=== PATIENT | female | born 2005 | race Caucasian/White ===

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

== ENCOUNTER → 2023-02-25 | Outpatient (CLI) | payer OTHER ==
--- NOTE | 2023-03-06 10:13 | P.CEMON ---
7 DAY EVENT MONITOR REPORT: INDICATION: Chest pain. START DATE: 02/25/2023 END DATE: 03/03/2023 Patient wore the monitor for 4 days which is 57 % of total time. Maximum Heart Rate: 153 BPM Minimum Heart Rate: 60 BPM FINDINGS: Overall good quality study Patient's baseline rhythm was [normal sinus rhythm]. Baseline heart rate was 86 beats per minute. There were no observed atrial fibrillation, atrial flutter or sustained ventricular rhythm. There were no observed sinus pauses which were more than 2 second long. Patient had triggered events for chest pain and palpitations. On most occasions these were corresponding to sinus tachycardia with heart rates ranging from 120- 150 beats a minute. There were a few auto capture events respondent to sinus tachycardia. Please correlate clinically. Berny Smiley MD Cardiovascular Disease
== END | disposition home or self-care (01) ==
LOC: RADECHMAIN 07:23
PROVIDERS: ATTEND Family Medicine
DX: R07.9 Chest pain, unspecified (principal); R00.2 Palpitations; R00.0 Tachycardia, unspecified
CPT/HCPCS: 93225; 93226

== ENCOUNTER 2023-03-20 23:55 | Emergency (ER) | payer OTHER ==
[2023-03-21 00:03] VITALS: RESP 18
--- NOTE | 2023-03-21 00:56 | XR ---
EXAM: XR Left Wrist Complete, 3 or More Views CLINICAL HISTORY: ITS.REASON XR Reason: pain and swelling TECHNIQUE: Frontal, lateral and oblique views of the left wrist. COMPARISON: No relevant prior studies available. FINDINGS: Bones/joints: No acute fracture. No dislocation. Soft tissues: Unremarkable. No radiopaque foreign body. IMPRESSION: No acute osseous findings.
--- NOTE | 2023-03-21 01:28 | ED ---
Upper Extremity HPI - General Chief Complaint: Extremity Injury, Upper Stated Complaint: L Wrist Pain Time Seen by Provider: 03/21/23 00:42 Source: patient Mode of arrival: ambulatory Limitations: no limitations - History of Present Illness Initial Comments: 18-year-old female presenting with chief complaint of left wrist pain. She states that she injured it while pulling with her dog. She is having pain on the lateral portion and the anterior portion. No numbness or tingling. She has pain with range of motion. She has previously dislocated this wrist. - Related Data Home Medications Medication Instructions Recorded Confirmed Albuterol Inhaler [Ventolin Hfa 2 puff INHALATION RT-QID PRN 06/29/20 04/21/21 Inhaler] Ibuprofen 400 mg PO DIRECTED PRN 06/29/20 04/21/21 medroxyPROGESTERone [Depo-Provera] 150 mg IM Q90D 06/29/20 04/21/21 Bjvrfti-Ydod-Bsqt [id number] 1 each PO DIRECTED PRN 04/10/21 04/21/21 [Excedrin] Cetirizine HCl [Zyrtec] 10 mg PO DAILY 04/10/21 04/21/21 FLUoxetine HCL [PROzac] 10 mg PO DAILY PRN 04/10/21 04/21/21 Allergies Allergy/AdvReac Type Severity Reaction Status Date / Time No Known Allergies Allergy Verified 03/21/23 00:00 Review of Systems ROS Statement: Those systems with pertinent positive or pertinent negative responses have been documented in the HPI. ROS Other: All systems not noted in ROS Statement are negative. Past Medical History Past Medical History: Asthma Additional Past Medical History / Comment(s): hypoglycemia, exercise induced asthma., stress headaches, occ. heart flutter., hx of fx nose, left ankle, elbow, right wrist & left fibula., Slipped and injured left ankle November 2020. History of Any Multi-Drug Resistant Organisms: None Reported Past Surgical History: No Surgical Hx Reported Additional Past Surgical History / Comment(s): ganglion cyst Past Anesthesia/Blood Transfusion Reactions: No Reported Reaction, Motion Sickness Additional Past Anesthesia/Blood Transfusion Reaction / Comment(s): . Past Psychological History: Anxiety Smoking Status: Never smoker Past Alcohol Use History: None Reported Past Drug Use History: None Reported - Past Family History Mother Additional Family Medical History / Comment(s): possible minor stroke General Exam Limitations: no limitations General appearance: alert, in no apparent distress Head exam: Present: atraumatic, normocephalic, normal inspection Eye exam: Present: normal appearance, EOMI Neck exam: Present: normal inspection, full ROM Left Forearm Wrist exam: Present: normal inspection, tenderness, tenderness over anatomical snuff box. Absent: full ROM, swelling Neuro motor exam: Present: other (Neurovascularly intact) Neurological exam: Present: alert, oriented X3, CN II-XII intact Psychiatric exam: Present: normal affect, normal mood Skin exam: Present: warm, dry, intact, normal color. Absent: rash Course Vital Signs 03/21/23 00:00 Temperature 97.7 F Pulse Rate 95 Respiratory 18 Rate Blood Pressure 125/81 O2 Sat by Pulse 98 Oximetry Procedures - Orthopedic Splinting/Casting Injury #1 Side: left Upper Extremity Injury Location: wrist Upper Extremity Immobilizer: thumb spica Medical Decision Making - Medical Decision Making Was pt. sent in by a medical professional or institution (Dr. PA, WEB PRODUCTION DESIGNER, urgent care, hospital, or halfway...) When possible be specific @ -No Did you speak to anyone other than the patient for history (EMS, parent, family, police, friend...)? What history was obtained from this source @ -No Did you review nursing and triage notes (agree or disagree)? Why? @ -I reviewed and agree with nursing and triage notes Were old charts reviewed (outside hosp., previous admission, EMS record, old EKG, old radiological studies, urgent care reports/EKG's, halfway records)? Report findings @ -No old charts were reviewed Differential Diagnosis (chest pain, altered mental status, abdominal pain women, abdominal pain men, vaginal bleeding, weakness, fever, dyspnea, syncope, head ache, dizziness, GI bleed, back pain, seizure, CVA, palpatations, mental health, musculoskeletal)? @ -Differential Musculoskeletal Muscular strain, contusion, ligament sprain, fracture, arthritis, septic arthritis, bursitis, cellulitis, muscle spasm, nerve compression, DVT, arterial occlusion, herpes zoster, electrolyte abnormality, tumor.... This is not meant to be in all inclusive list EKG interpreted by me (3pts min.). @ -As above X-rays interpreted by me (1pt min.). @ -X-ray shows no acute osseous abnormality CT interpreted by me (1pt min.). @ -None done U/S interpreted by me (1pt. min.). @ -None done What testing was considered but not performed or refused? (CT, X-rays, U/S, labs)? Why? @ -None What meds were considered but not given or refused? Why? @ -None Did you discuss the management of the patient with other professionals (professionals i.e. , PA, WEB PRODUCTION DESIGNER, lab, RT, psych nurse, secondary social studies teacher, senior electronics technician, teacher, plain clothes police officer, nurse case management)? Give summary @ -No Was smoking cessation discussed for >3mins.? @ -No Was critical care preformed (if so, how long)? @ -No Were there social determinants of health that impacted care today? How? (Homelessness, low income, unemployed, alcoholism, drug addiction, transportation, low edu. Level, literacy, decrease access to med. care, [facility], rehab)? @ -No Was there de-escalation of care discussed even if they declined (Discuss DNR or withdrawal of care, Hospice)? DNR status @ -No What co-morbidities impacted this encounter? (DM, HTN, Smoking, COPD, CAD, Cancer, CVA, ARF, Chemo, Hep., AIDS, mental health diagnosis, sleep apnea, morbid obesity)? @ -None Was patient admitted / discharged? Hospital course, mention meds given and route, prescriptions, significant lab abnormalities, going to OR and other pertinent info. @ -18-year-old female presenting with chief complaint of left wrist injury. On physical examination she has snuffbox tenderness. X-ray is negative for osseous abnormality. Patient is placed in thumb spica splint and instructed to follow up with orthopedics.Follow-up with PCP. Report back to ER with any new or worsening symptoms. Discussed return parameters and answered all questions. Patient conveyed verbal understanding and agreed to the plan. I discussed this case in detail with my attending Dr. Pearce Undiagnosed new problem with uncertain prognosis? @ -No Drug Therapy requiring intensive monitoring for toxicity (Heparin, Nitro, Insulin, Cardizem)? @ -No Were any procedures done? @ -Thumb spica splint applied Diagnosis/symptom? @ -Snuffbox tenderness Acute, or Chronic, or Acute on Chronic? @ -Acute Uncomplicated (without systemic symptoms) or Complicated (systemic symptoms)? @ -Uncomplicated Side effects of treatment? @ -No Exacerbation, Progression, or Severe Exacerbation? @ -No Poses a threat to life or bodily function? How? (Chest pain, [place], [place], pneumonia, PE, COPD, DKA, ARF, appy, cholecystitis, CVA, Diverticulitis, Homicidal, Suicidal, threat to staff... and all critical care pts) @ -No Disposition Clinical Impression: Tenderness of anatomical snuffbox Disposition: HOME SELF-CARE Condition: Good Instructions (If sedation given, give patient instructions): Scaphoid Fracture (ED) Additional Instructions: Follow up with orthopedics. Report back to ER with any new or worsening symptoms. Take Motrin and Tylenol as needed for pain control. Rest ice and elevate. Is patient prescribed a controlled substance at d/c from ED?: No Referrals: Jacob Oliveira MD [Primary Care Provider] - 1-2 days Leighton Johnson DO [Doctor of Osteopathic Medicine] - 1-2 days Time of Disposition: 01:28
[2023-03-21 03:17] VITALS: BP 124/81; PULSE 78; TEMP 98.1
== END 2023-03-21 02:00 | disposition home or self-care (01) ==
LOC: EC 23:55
DX: S62.002A Unspecified fracture of navicular [scaphoid] bone of left wrist, initial encounter for closed fracture (principal); J45.909 Unspecified asthma, uncomplicated; F41.9 Anxiety disorder, unspecified; Z79.82 Long term (current) use of aspirin; Z79.899 Other long term (current) drug therapy; X50.9XXA Other and unspecified overexertion or strenuous movements or postures, initial encounter
CPT/HCPCS: 29125; 99283

== ENCOUNTER 2023-03-25 17:03 | Emergency (ER) | payer OTHER ==
[2023-03-25 17:17] VITALS: BP 134/84; PULSE 74; RESP 18; TEMP 98.3
[2023-03-25] MEDS ORDERED: ACET/COD 300 MG/30 MG STARTER PACK 6 TAB BTL PO STA (17:25)
[2023-03-25] MEDS ORDERED: Acetaminophen-Codeine 300-30mg TAB PO STA (17:25)
--- NOTE | 2023-03-25 17:25 | ED ---
Upper Extremity HPI - General Chief Complaint: Extremity Injury, Upper Stated Complaint: wrist pain left Time Seen by Provider: 03/25/23 17:18 Source: patient Mode of arrival: ambulatory Limitations: no limitations - History of Present Illness Initial Comments: 18-year-old female presenting with chief complaint of left wrist pain. She was here several days resting, she was placed in a thumb spica splint and instructed to follow up with orthopedics. She was provided with referral. She states that she saw her previous orthopedist today, who placed her in a Velcro thumb spica splint and said that there was nothing further to do. Patient states that she wants a second opinion she is still having pain. She was unable to follow up with the referral provided to her and her ER visit due to insurance issues. No numbness or tingling. Limited range of motion secondary to pain. - Related Data Home Medications Medication Instructions Recorded Confirmed Albuterol Inhaler [Ventolin Hfa 2 puff INHALATION RT-QID PRN 06/29/20 04/21/21 Inhaler] Ibuprofen 400 mg PO DIRECTED PRN 06/29/20 04/21/21 medroxyPROGESTERone [Depo-Provera] 150 mg IM Q90D 06/29/20 04/21/21 [id number] 1 each PO DIRECTED PRN 04/10/21 04/21/21 [Excedrin] Cetirizine HCl [Zyrtec] 10 mg PO DAILY 04/10/21 04/21/21 FLUoxetine HCL [PROzac] 10 mg PO DAILY PRN 04/10/21 04/21/21 Allergies Allergy/AdvReac Type Severity Reaction Status Date / Time No Known Allergies Allergy Verified 03/25/23 17:17 Review of Systems ROS Statement: Those systems with pertinent positive or pertinent negative responses have been documented in the HPI. ROS Other: All systems not noted in ROS Statement are negative. Past Medical History Past Medical History: Asthma Additional Past Medical History / Comment(s): hypoglycemia, exercise induced asthma., stress headaches, occ. heart flutter., hx of fx nose, left ankle, elbow, right wrist & left fibula., Slipped and injured left ankle November 2020. POTS History of Any Multi-Drug Resistant Organisms: None Reported Past Surgical History: No Surgical Hx Reported Additional Past Surgical History / Comment(s): ganglion cyst Past Anesthesia/Blood Transfusion Reactions: No Reported Reaction, Motion Sickness Additional Past Anesthesia/Blood Transfusion Reaction / Comment(s): . Past Psychological History: Anxiety Smoking Status: Never smoker Past Alcohol Use History: None Reported Past Drug Use History: None Reported - Past Family History Mother Additional Family Medical History / Comment(s): possible minor stroke General Exam Limitations: no limitations General appearance: alert, in no apparent distress Head exam: Present: atraumatic, normocephalic, normal inspection Eye exam: Present: normal appearance, EOMI Neck exam: Present: normal inspection, full ROM Left Forearm Wrist exam: Present: normal inspection, tenderness, tenderness over anatomical snuff box. Absent: full ROM, swelling, ecchymosis, deformity Neurological exam: Present: alert, oriented X3, CN II-XII intact Psychiatric exam: Present: normal affect, normal mood Skin exam: Present: warm, dry, intact, normal color. Absent: rash Course Vital Signs 03/25/23 17:14 Temperature 98.3 F Pulse Rate 74 Respiratory 18 Rate Blood Pressure 134/84 O2 Sat by Pulse 99 Oximetry Medical Decision Making - Medical Decision Making Was pt. sent in by a medical professional or institution (, PA, CHIEF ARCHITECT, urgent care, hospital, or correction...) When possible be specific @ -No Did you speak to anyone other than the patient for history (EMS, parent, family, police, friend...)? What history was obtained from this source @ -No Did you review nursing and triage notes (agree or disagree)? Why? @ -I reviewed and agree with nursing and triage notes Were old charts reviewed (outside hosp., previous admission, EMS record, old EKG, old radiological studies, urgent care reports/EKG's, correction records)? Report findings @ -Previous x-ray reviewed Differential Diagnosis (chest pain, altered mental status, abdominal pain women, abdominal pain men, vaginal bleeding, weakness, fever, dyspnea, syncope, headache, dizziness, GI bleed, back pain, seizure, CVA, palpatations, mental health, musculoskeletal)? @ -Differential Musculoskeletal Muscular strain, contusion, ligament sprain, fracture, arthritis, septic arthritis, bursitis, cellulitis, muscle spasm, nerve compression, DVT, arterial occlusion, herpes zoster, electrolyte abnormality, tumor.... This is not meant to be in all inclusive list EKG interpreted by me (3pts min.). @ -As above X-rays interpreted by me (1pt min.). @ -None done CT interpreted by me (1pt min.). @ -None done U/S interpreted by me (1pt. min.). @ -None done What testing was considered but not performed or refused? (CT, X-rays, U/S, labs)? Why? @ -None What meds were considered but not given or refused? Why? @ -None Did you discuss the management of the patient with other professionals (professionals i.e. Dr., PA, CHIEF ARCHITECT, lab, RT, psych nurse, social media editor, support services coordinator, teacher, strike warfare/missile systems officer, pillowcase cutter)? Give summary @ -No Was smoking cessation discussed for >3mins.? @ -No Was critical care preformed (if so, how long)? @ -No Were there social determinants of health that impacted care today? How? (Homelessness, low income, unemployed, alcoholism, drug addiction, transportation, low edu. Level, literacy, decrease access to med. care, shelter, rehab)? @ -No Was there de-escalation of care discussed even if they declined (Discuss DNR or withdrawal of care, Hospice)? DNR status @ -No What co-morbidities impacted this encounter? (DM, HTN, Smoking, COPD, CAD, Cancer, CVA, ARF, Chemo, Hep., AIDS, mental health diagnosis, sleep apnea, morbid obesity)? @ -None Was patient admitted / discharged? Hospital course, mention meds given and route, prescriptions, significant lab abnormalities, going to OR and other pertinent info. @ -18-year-old female presents with chief complaint of left wrist pain. She was seen here several days ago for an injury placed in thumb spica splint. Seen at her previous orthopedist office today who placed her in a Velcro thumb spica splint and stated that no further workup is needed. Patient is requesting a second opinion. She states the pain goes throughout the entire hand into the wrist. No new injury. She is provided with a short course of Tylenol 3 and referral for local orthopedist. Follow-up with PCP. Report back to ER with any new or worsening symptoms. Discussed return parameters and answered all questions. Patient conveyed verbal understanding and agreed to the plan. I discussed this case in detail with my attending Dr. Ca Undiagnosed new problem with uncertain prognosis? @ -No Drug Therapy requiring intensive monitoring for toxicity (Heparin, Nitro, Insulin, Cardizem)? @ -No Were any procedures done? @ -No Diagnosis/symptom? @ -Wrist pain Acute, or Chronic, or Acute on Chronic? @ -Acute Uncomplicated (without systemic symptoms) or Complicated (systemic symptoms)? @ -Uncomplicated Side effects of treatment? @ -No Exacerbation, Progression, or Severe Exacerbation? @ -No Poses a threat to life or bodily function? How? (Chest pain, [place], [place], pneumonia, PE, COPD, DKA, ARF, appy, cholecystitis, CVA, Diverticulitis, Homicidal, Suicidal, threat to staff... and all critical care pts) @ -No Disposition Clinical Impression: Wrist sprain Disposition: HOME SELF-CARE Condition: Good Instructions (If sedation given, give patient instructions): Wrist Injury (ED) Additional Instructions: Follow up with orthopedics. Report back to ER if any new or worsening symptoms. Take Motrin and Tylenol for pain control. Is patient prescribed a controlled substance at d/c from ED?: No Referrals: Jacob Oliveira MD [Primary Care Provider] - 1-2 days Luigi Wilson MD [STAFF PHYSICIAN] - 1-2 days Chidi Black MD [Medical Doctor] - 1-2 days Time of Disposition: 17:25
== END 2023-03-25 17:41 | disposition home or self-care (01) ==
LOC: EC 17:03
DX: S63.502A Unspecified sprain of left wrist, initial encounter (principal); J45.909 Unspecified asthma, uncomplicated; F41.9 Anxiety disorder, unspecified; Z79.82 Long term (current) use of aspirin; Z79.899 Other long term (current) drug therapy; X58.XXXA Exposure to other specified factors, initial encounter
CPT/HCPCS: 99284

== ENCOUNTER 2023-08-04 17:41 | Emergency (ER) | payer OTHER ==
--- NOTE | 2023-08-04 18:51 | XR ---
EXAMINATION TYPE: XR cervical spine comp DATE OF EXAM: 08/04/2023 6:23 PM CLINICAL INDICATION:Female, 18 years old with history of pain; [facility] COMPARISON: None TECHNIQUE: The cervical spine was imaged in frontal, lateral, odontoid and bilateral oblique projecti ons. FINDINGS: The osseous structures show no evidence of an acute fracture. No traumatic malalignment. There is mil d reversal of the normal cervical lordosis. No significant vertebral body osteophytes or facet joint arthropathy. The intervertebral disk spaces are preserved. Pedicles are intact. Bilateral osseous ne ural foramina appear patent. Soft tissues are within normal limits. The odontoid appears intact. If clinical concern persists, CT may be obtained for further evaluation. IMPRESSION: 1. No plain film evidence of acute fracture or traumatic malalignment. 2. Mild reversal of the normal cervical lordosis, can be seen with pain, positioning, muscular spasm .
[2023-08-04] MEDS ORDERED: ACET/COD 300 MG/30 MG STARTER PACK 6 TAB BTL PO STA (19:00)
--- NOTE | 2023-08-04 19:00 | ED ---
Neck Injury/Pain HPI - General Chief Complaint: Neck Pain/Injury Stated Complaint: Neck pain Time Seen by Provider: 08/04/23 17:52 Source: patient, RN notes reviewed Mode of arrival: ambulatory Limitations: no limitations - History of Present Illness Initial Comments: 18-year-old female presents emergency Department chief complaint of neck pain. Patient states that she's been having issues is worse in the last few weeks. She states this started after having right shoulder dislocation. Patient states that it cracked over the last day and states that she's had pain associated. She denies any focal weakness no headache. Patient denies any fevers or chills she states pain is better at rest worse with any movement. She is currently on Flexeril and ibuprofen. - Related Data Home Medications Medication Instructions Recorded Confirmed Albuterol Inhaler [Ventolin Hfa 2 puff INHALATION RT-QID PRN 06/29/20 04/21/21 Inhaler] Ibuprofen 400 mg PO DIRECTED PRN 06/29/20 04/21/21 medroxyPROGESTERone [Depo-Provera] 150 mg IM Q90D 06/29/20 04/21/21 [id number] 1 each PO DIRECTED PRN 04/10/21 04/21/21 [Excedrin] Cetirizine HCl [Zyrtec] 10 mg PO DAILY 04/10/21 04/21/21 FLUoxetine HCL [PROzac] 10 mg PO DAILY PRN 04/10/21 04/21/21 Allergies Allergy/AdvReac Type Severity Reaction Status Date / Time No Known Allergies Allergy Verified 08/04/23 17:47 Review of Systems ROS Statement: Those systems with pertinent positive or pertinent negative responses have been documented in the HPI. ROS Other: All systems not noted in ROS Statement are negative. Past Medical History Past Medical History: Asthma Additional Past Medical History / Comment(s): hypoglycemia, exercise induced asthma., stress headaches, occ. heart flutter., hx of fx nose, left ankle, elbow, right wrist & left fibula., Slipped and injured left ankle November 2020. POTS History of Any Multi-Drug Resistant Organisms: None Reported Past Surgical History: No Surgical Hx Reported Additional Past Surgical History / Comment(s): ganglion cyst Past Anesthesia/Blood Transfusion Reactions: No Reported Reaction, Motion Sickness Additional Past Anesthesia/Blood Transfusion Reaction / Comment(s): . Past Psychological History: Anxiety Smoking Status: Never smoker Past Alcohol Use History: None Reported Past Drug Use History: None Reported - Past Family History Mother Additional Family Medical History / Comment(s): possible minor stroke General Exam Limitations: no limitations General appearance: alert, in no apparent distress Head exam: Present: atraumatic, normocephalic, normal inspection Eye exam: Present: normal appearance, PERRL, EOMI. Absent: scleral icterus, conjunctival injection, periorbital swelling ENT exam: Present: normal exam, mucous membranes moist Neck exam: Present: normal inspection, tenderness (Paraspinal), full ROM (Pain with range of motion). Absent: meningismus, lymphadenopathy Respiratory exam: Present: normal lung sounds bilaterally. Absent: respiratory distress, wheezes, rales, rhonchi, stridor Cardiovascular Exam: Present: regular rate, normal rhythm, normal heart sounds. Absent: systolic murmur, diastolic murmur, rubs, gallop, clicks Extremities exam: Present: other (Upper extremity strength equal bilaterally neurovascular intact) Neurological exam: Present: alert, oriented X3, CN II-XII intact, reflexes normal. Absent: motor sensory deficit Course Vital Signs 08/04/23 17:44 Temperature 98.3 F Pulse Rate 113 H Respiratory 20 Rate Blood Pressure 135/91 O2 Sat by Pulse 99 Oximetry Medical Decision Making - Medical Decision Making Was pt. sent in by a medical professional or institution (, PA, BORDER PATROL OFFICER, urgent care, hospital, or detention...) When possible be specific @ -No Did you speak to anyone other than the patient for history (EMS, parent, family, police, friend...)? What history was obtained from this source @ -No Did you review nursing and triage notes (agree or disagree)? Why? @ -I reviewed and agree with nursing and triage notes Were old charts reviewed (outside hosp., previous admission, EMS record, old EKG, old radiological studies, urgent care reports/EKG's, detention records)? Report findings @ -No old charts were reviewed Differential Diagnosis (chest pain, altered mental status, abdominal pain women, abdominal pain men, vaginal bleeding, weakness, fever, dyspnea, syncope, headache, dizziness, GI bleed, back pain, seizure, CVA, palpatations, mental health, musculoskeletal)? @ -Trapezial muscle spasm, cervical strain, cervical pain spasmodic torticollis, EKG interpreted by me (3pts min.). @ -None X-ray interpreted by me (1pt min.). @ X-ray cervical spine shows loss of normal curvature, no other malalignment or fracture CT interpreted by me (1pt min.). @ -None done U/S interpreted by me (1pt. min.). @ -None done What testing was considered but not performed or refused? (CT, X-rays, U/S, labs)? Why? @ -None What meds were considered but not given or refused? Why? @ -None Did you discuss the management of the patient with other professionals (professionals i.e. , PA, BORDER PATROL OFFICER, lab, RT, psych nurse, licensed master social worker, fashion illustrator, teacher, commanding officer motorized squad, wrapper caser)? Give summary @ -No Was smoking cessation discussed for >3mins.? @ -No Was critical care preformed (if so, how long)? @ -No Were there social determinants of health that impacted care today? How? (Homelessness, low income, unemployed, alcoholism, drug addiction, transportation, low edu. Level, literacy, decrease access to med. care, intermediate, rehab)? @ -No Was there de-escalation of care discussed even if they declined (Discuss DNR or withdrawal of care, Hospice)? DNR status @ -No What co-morbidities impacted this encounter? (DM, HTN, Smoking, COPD, CAD, Cancer, CVA, ARF, Chemo, Hep., AIDS, mental health diagnosis, sleep apnea, morbid obesity)? @ -None Was patient admitted / discharged? Hospital course, mention meds given and route, prescriptions, significant lab abnormalities, going to OR and other pertinent info. @ -discharge patient has muscle spasms, muscular pain patient has no meningismus patient is afebrile patient is discharged in stable condition she did receive Valium in emergency department. Undiagnosed new problem with uncertain prognosis? @ [N] Drug Therapy requiring intensive monitoring for toxicity (Heparin, Nitro, Insulin, Cardizem)? @ [N] Were any procedures done? @ [N] Diagnosis/symptom? @ -Cervical strain, muscle spasms] Acute, or Chronic, or Acute on Chronic? @ Acute] Uncomplicated (without systemic symptoms) or Complicated (systemic symptoms)? @ Uncomplicated] Side effects of treatment? @ [N] Exacerbation, Progression, or Severe Exacerbation? @ [N] Poses a threat to life or bodily function? How? (Chest pain, [place], [place], pneumonia, PE, COPD, DKA, ARF, appy, cholecystitis, CVA, Diverticulitis, Homicidal, Suicidal, threat to staff... and all critical care pts) @ [N] Disposition Clinical Impression: Strain of neck muscle, Acute torticollis Disposition: HOME SELF-CARE Condition: Stable Instructions (If sedation given, give patient instructions): Cervical Strain (ED), Muscle Spasm (ED) Additional Instructions: Please return to the Emergency Department if symptoms worsen or any other concerns. Is patient prescribed a controlled substance at d/c from ED?: No Referrals: Jacob Oliveira MD [Primary Care Provider] - 1-2 days Time of Disposition: 19:00
[2023-08-04 19:50] VITALS: BP 113/80; PULSE 91; RESP 16; TEMP 98.7
== END 2023-08-04 20:00 | disposition home or self-care (01) ==
LOC: EC 17:41
DX: S16.1XXA Strain of muscle, fascia and tendon at neck level, initial encounter (principal); M43.6 Torticollis; J45.909 Unspecified asthma, uncomplicated; F41.9 Anxiety disorder, unspecified; Z79.82 Long term (current) use of aspirin; Z79.899 Other long term (current) drug therapy; X58.XXXA Exposure to other specified factors, initial encounter
CPT/HCPCS: 72050; 99283; 96372; J3360

== ENCOUNTER 2023-11-18 01:14 | Emergency (ER) | payer OTHER ==
[2023-11-18 01:46] LABS: Basophils # (A) 0.1 k/uL (0-0.2); Basophils % (A) 0 %; Eosinophils # (A) 0.1 k/uL (0-0.7); Eosinophils % (A) 1 %; HGB 13.6 gm/dL (11.4-16.0); Lymphocytes # (A) 2.5 k/uL (1.0-4.8); Lymphocytes % (A) 16 %; MCH 32.1 pg (25.0-35.0); MCHC 35.9 g/dL (31.0-37.0); MCV 89.5 fL (80.0-100.0); Mean Platelet Volume 7.8; Monocytes # (A) 0.8 k/uL (0-1.0); Monocytes % (A) 5 %; Neutrophils # (A) 12.3 k/uL (1.3-7.7); Neutrophils % (A) 77 %; Platelet Count 336 k/uL (150-450); RBC 4.25 m/uL (3.80-5.40); RDW 13.2 % (11.5-15.5); WBC 16.1 k/uL (4.0-11.0)
[2023-11-18 01:57] LABS: ALT 22 U/L (4-34); AST 25 U/L (14-36); African American GFR (CKD) >90 (>60 ml/min/1.73 sqM); Albumin 3.9 g/dL (3.5-5.0); Alkaline Phosphatase 80 U/L (38-126); Anion Gap 10 mmol/L; Blood Urea Nitrogen 13 mg/dL (7-17); Calcium 8.9 mg/dL (8.4-10.2); Carbon Dioxide 17 mmol/L (22-30); Chloride 112 mmol/L (98-107); Glucose 91 mg/dL (74-99); Non-African American GFR(CKD) >90 (>60 ml/min/1.73 sqM); Potassium 4.3 mmol/L (3.5-5.1); Sodium 139 mmol/L (137-145); Total Bilirubin 0.5 mg/dL (0.2-1.3); Total Protein 7.2 g/dL (6.3-8.2)
[2023-11-18 01:59] VITALS: TEMP 97.8
--- NOTE | 2023-11-18 01:59 | XR ---
EXAM: XR Chest, 2 Views CLINICAL HISTORY: ITS.REASON XR Reason: syncope TECHNIQUE: Frontal and lateral views of the chest. COMPARISON: No relevant prior studies available. FINDINGS: Lungs: No consolidation or mass. Pleural space: No effusion. Heart: No cardiomegaly. Bones/joints: No acute findings. IMPRESSION: No acute cardiopulmonary process.
[2023-11-18 02:06] LABS: Partial Thromboplastin Time 24.9 sec (22.0-30.0); Prothrombin Time 10.8 sec (10.0-12.5)
--- NOTE | 2023-11-18 02:06 | CT ---
EXAM: CT Head Without Intravenous Contrast CLINICAL HISTORY: ITS.REASON CT Reason: fall, head injury TECHNIQUE: Axial computed tomography images of the head/brain without intravenous contrast. CTDI is 45.2 mGy and DLP is 1032 mGy-cm. This CT exam was performed using one or more of the following dose reduction techniques: automated exposure control, adjustment of the mA and/or kV according to patient size, and/or use of iterative reconstruction technique. COMPARISON: No relevant prior studies available. FINDINGS: Brain: No hemorrhage or mass effect. Ventricles: No hydrocephalus. Bones/joints: Unremarkable. Soft tissues: Unremarkable. Sinuses: No air fluid level. Mastoid air cells: Clear. IMPRESSION: No acute hemorrhage, hydrocephalus, or mass effect. EXAM: CT Cervical Spine Without Intravenous Contrast CLINICAL HISTORY: ITS.REASON CT Reason: fall, head injury TECHNIQUE: Axial computed tomography images of the cervical spine without intravenous contrast. CTDI is 13.7 mGy and DLP is 378.5 mGy-cm. This CT exam was performed using one or more of the following dose reduction techniques: automated exposure control, adjustment of the mA and/or kV according to patient size, and/or use of iterative reconstruction technique. COMPARISON: No relevant prior studies available. FINDINGS: Vertebrae: No acute fracture. Discs/spinal canal/neural foramina: No significant degenerative changes. Soft tissues: No prevertebral swelling. IMPRESSION: No acute findings in the cervical spine.
--- NOTE | 2023-11-18 03:02 | ED ---
General Adult HPI - General Chief complaint: Syncope Stated complaint: Syncope Time Seen by Provider: 11/18/23 01:15 Source: patient Mode of arrival: ambulatory Limitations: no limitations - History of Present Illness Initial comments: 18-year-old female with past medical history of POTS who presents emergency department for possible syncope. EMS was called when the patient was found unresponsive in bed. She states that she was on the phone talking to her boyfriend. The next thing she knew she was lying on the floor next to her bed. She does not remember anything from the event. EMS did place the patient in a c-collar and brought her into the hospital. There is no report of any seizure- like activity. Unknown how long the patient was on the ground. She states that she has had previous episodes of similar and is currently under the care of Dr. Cristina. She states that he did diagnose her with POTS. She denies having any chest pain prior to the incident. She does have some mild right-sided neck pain. No obvious signs of injury. No nausea or vomiting. No reported confusion from the patient. No other alleviating, precipitating modifying factors - Related Data Home Medications Medication Instructions Recorded Confirmed Albuterol Inhaler [Ventolin Hfa 2 puff INHALATION RT-QID PRN 06/29/20 04/21/21 Inhaler] Ibuprofen 400 mg PO DIRECTED PRN 06/29/20 04/21/21 medroxyPROGESTERone [Depo-Provera] 150 mg IM Q90D 06/29/20 04/21/21 [id number] 1 each PO DIRECTED PRN 04/10/21 04/21/21 [Excedrin] Cetirizine HCl [Zyrtec] 10 mg PO DAILY 04/10/21 04/21/21 FLUoxetine HCL [PROzac] 10 mg PO DAILY PRN 04/10/21 04/21/21 Allergies Allergy/AdvReac Type Severity Reaction Status Date / Time No Known Allergies Allergy Verified 11/18/23 01:23 Review of Systems ROS Statement: Those systems with pertinent positive or pertinent negative responses have been documented in the HPI. ROS Other: All systems not noted in ROS Statement are negative. Past Medical History Past Medical History: Asthma Additional Past Medical History / Comment(s): hypoglycemia, exercise induced asthma., stress headaches, occ. heart flutter., hx of fx nose, left ankle, elbow, right wrist & left fibula., Slipped and injured left ankle November 2020. POTS History of Any Multi-Drug Resistant Organisms: None Reported Past Surgical History: No Surgical Hx Reported Additional Past Surgical History / Comment(s): ganglion cyst Past Anesthesia/Blood Transfusion Reactions: No Reported Reaction, Motion Sickness Additional Past Anesthesia/Blood Transfusion Reaction / Comment(s): . Past Psychological History: Anxiety Smoking Status: Never smoker Past Alcohol Use History: None Reported Past Drug Use History: None Reported - Past Family History Mother Additional Family Medical History / Comment(s): possible minor stroke General Exam Limitations: no limitations General appearance: alert, in no apparent distress Head exam: Present: atraumatic, normocephalic, normal inspection Eye exam: Present: normal appearance, PERRL, EOMI. Absent: scleral icterus, conjunctival injection, periorbital swelling ENT exam: Present: normal exam, mucous membranes moist Neck exam: Present: tenderness (Right-sided. No midline pain to palpation). Absent: meningismus, lymphadenopathy Respiratory exam: Present: normal lung sounds bilaterally. Absent: respiratory distress, wheezes, rales, rhonchi, stridor Cardiovascular Exam: Present: regular rate, normal rhythm, normal heart sounds. Absent: systolic murmur, diastolic murmur, rubs, gallop, clicks GI/Abdominal exam: Present: soft, normal bowel sounds. Absent: distended, tenderness, guarding, rebound, rigid Extremities exam: Present: normal inspection, full ROM, normal capillary refill. Absent: tenderness, pedal edema, joint swelling, calf tenderness Back exam: Present: normal inspection Neurological exam: Present: alert, oriented X3, CN II-XII intact Psychiatric exam: Present: normal affect, normal mood Skin exam: Present: warm, dry, intact, normal color. Absent: rash Course Vital Signs 11/18/23 11/18/23 11/18/23 01:15 02:23 03:30 Temperature 97.8 F Pulse Rate 69 90 80 Respiratory 18 15 24 Rate Blood Pressure 123/85 132/82 112/88 O2 Sat by Pulse 99 97 96 Oximetry 11/18/23 05:00 Temperature Pulse Rate 76 Respiratory 18 Rate Blood Pressure 102/66 O2 Sat by Pulse 97 Oximetry Medical Decision Making - Medical Decision Making Was pt. sent in by a medical professional or institution ([facility], [employer], urgent care, hospital, or halfway...) When possible be specific @ -No Did you speak to anyone other than the patient for history (EMS, parent, family, police, friend...)? What history was obtained from this source @ -Spoke with EMS Did you review nursing and triage notes (agree or disagree)? Why? @ -I reviewed and agree with nursing and triage notes Were old charts reviewed (outside hosp., previous admission, EMS record, old EKG, old radiological studies, urgent care reports/EKG's, halfway records)? Report findings @ -No old charts were reviewed Differential Diagnosis (chest pain, altered mental status, abdominal pain women, abdominal pain men, vaginal bleeding, weakness, fever, dyspnea, syncope, headache, dizziness, GI bleed, back pain, seizure, CVA, palpatations, mental health, musculoskeletal)? @ -Differential Syncope: Valvular disease, hypertrophic cardiomyopathy, pulmonary embolism, tamponade, tachycardia, bradycardia, OH, hypovolemia, hemorrhage, dissection, anemia, intracranial hemorrhage, seizure, hypoglycemia, carbon monoxide poisoning, this is not meant to be an all-inclusive list. EKG interpreted by me (3pts min.). @ -Yes and demonstrates sinus rhythm with a rate of 80. VT interval 128. QRS 97. QTc of 414. No acute ST segment elevation X-rays interpreted by me (1pt min.). @ -Yes and demonstrates no acute process CT interpreted by me (1pt min.). @ -Yes and demonstrates no cervical fractures U/S interpreted by me (1pt. min.). @ -None done What testing was considered but not performed or refused? (CT, X-rays, U/S, labs)? Why? @ -None What meds were considered but not given or refused? Why? @ -None Did you discuss the management of the patient with other professionals (professionals i.e. [facility], [employer], lab, RT, psych nurse, social director, engine buildup mechanic, teacher, contact officer, classification case manager)? Give summary @ -No Was smoking cessation discussed for >3mins.? @ -No Was critical care preformed (if so, how long)? @ -No Were there social determinants of health that impacted care today? How? (Homelessness, low income, unemployed, alcoholism, drug addiction, transportation, low edu. Level, literacy, decrease access to med. care, correction, rehab)? @ -No Was there de-escalation of care discussed even if they declined (Discuss DNR or withdrawal of care, Hospice)? DNR status @ -No What co-morbidities impacted this encounter? (DM, HTN, Smoking, COPD, CAD, Cancer, CVA, ARF, Chemo, Hep., AIDS, mental health diagnosis, sleep apnea, morbid obesity)? @ -POTS Was patient admitted / discharged? Hospital course, mention meds given and route, prescriptions, significant lab abnormalities, going to OR and other pertinent info. @ -Upon arrival patient was placed into room 1. Thorough history and physical exam was performed. Patient placed on continuous pulse ox and cardiac monitoring. Twelve-lead EKG is obtained. Laboratory studies are conducted. Patient does go for CT. No acute cervical fractures. C-collar was removed. Patient has no midline pain. Chest x-ray was performed. Results are discussed with patient. She remains on the cardiac cath lab radiology technologist without ectopy. At this time the patient will be discharged home. She is instructed to not drive while she is getting evaluated for her condition. She is to follow-up with Dr. Butler. Consider EEG for possible seizure-like activity and return for any new or worsening symptoms. Patient agreeable to plan was discharged in stable condition Undiagnosed new problem with uncertain prognosis? @ -Yes Drug Therapy requiring intensive monitoring for toxicity (Heparin, Nitro, Insulin, Cardizem)? @ -No Were any procedures done? @ -No Diagnosis/symptom? @ -Acute syncope, acute fall, right-sided neck pain, possible diagnosis of POTS syndrome Acute, or Chronic, or Acute on Chronic? @ -Acute, acute, acute, chronic Uncomplicated (without systemic symptoms) or Complicated (systemic symptoms)? @ -Complicated Side effects of treatment? @ -No Exacerbation, Progression, or Severe Exacerbation? @ -No Poses a threat to life or bodily function? How? (Chest pain, USA, [place], pneumonia, PE, COPD, DKA, ARF, appy, cholecystitis, CVA, Diverticulitis, Homicidal, Suicidal, threat to staff... and all critical care pts) @ -No - Lab Data Result diagrams: 11/18/23 01:33 11/18/23 01:33 Lab Results 11/18/23 11/18/23 11/18/23 Range/Units 01:33 01:33 01:33 WBC 16.1 H (4.0-11.0) k/uL RBC 4.25 (3.80-5.40) m/uL Hgb 13.6 (11.4-16.0) gm/dL Hct 38.0 (34.0-46.0) % MCV 89.5 (80.0-100.0) fL MCH 32.1 (25.0-35.0) pg MCHC 35.9 (31.0-37.0) g/dL RDW 13.2 (11.5-15.5) % Plt Count 336 (150-450) k/uL MPV 7.8 Neutrophils % 77 % Lymphocytes % 16 % Monocytes % 5 % Eosinophils % 1 % Basophils % 0 % Neutrophils # 12.3 H (1.3-7.7) k/uL Lymphocytes # 2.5 (1.0-4.8) k/uL Monocytes # 0.8 (0-1.0) k/uL Eosinophils # 0.1 (0-0.7) k/uL Basophils # 0.1 (0-0.2) k/uL PT 10.8 (10.0-12.5) sec INR 1.0 (<1.2) APTT 24.9 (22.0-30.0) sec Sodium 139 (137-145) mmol/L Potassium 4.3 (3.5-5.1) mmol/L Chloride 112 H (98-107) mmol/L Carbon Dioxide 17 L (22-30) mmol/L Anion Gap 10 mmol/L BUN 13 (7-17) mg/dL Creatinine 0.62 (0.52-1.04) mg/dL Est GFR (CKD-EPI)AfAm >90 (>60 ml/min/1.73 sqM) Est GFR (CKD-EPI)NonAf >90 (>60 ml/min/1.73 sqM) Glucose 91 (74-99) mg/dL Calcium 8.9 (8.4-10.2) mg/dL Total Bilirubin 0.5 (0.2-1.3) mg/dL AST 25 (14-36) U/L ALT 22 (4-34) U/L Alkaline Phosphatase 80 (38-126) U/L Troponin I (0.000-0.034) ng/mL Total Protein 7.2 (6.3-8.2) g/dL Albumin 3.9 (3.5-5.0) g/dL Urine HCG, Qual (Not Detectd) 11/18/23 11/18/23 Range/Units 01:33 03:40 WBC (4.0-11.0) k/uL RBC (3.80-5.40) m/uL Hgb (11.4-16.0) gm/dL Hct (34.0-46.0) % MCV (80.0-100.0) fL MCH (25.0-35.0) pg MCHC (31.0-37.0) g/dL RDW (11.5-15.5) % Plt Count (150-450) k/uL MPV Neutrophils % % Lymphocytes % % Monocytes % % Eosinophils % % Basophils % % Neutrophils # (1.3-7.7) k/uL Lymphocytes # (1.0-4.8) k/uL Monocytes # (0-1.0) k/uL Eosinophils # (0-0.7) k/uL Basophils # (0-0.2) k/uL PT (10.0-12.5) sec INR (<1.2) APTT (22.0-30.0) sec Sodium (137-145) mmol/L Potassium (3.5-5.1) mmol/L Chloride (98-107) mmol/L Carbon Dioxide (22-30) mmol/L Anion Gap mmol/L BUN (7-17) mg/dL Creatinine (0.52-1.04) mg/dL Est GFR (CKD-EPI)AfAm (>60 ml/min/1.73 sqM) Est GFR (CKD-EPI)NonAf (>60 ml/min/1.73 sqM) Glucose (74-99) mg/dL Calcium (8.4-10.2) mg/dL Total Bilirubin (0.2-1.3) mg/dL AST (14-36) U/L ALT (4-34) U/L Alkaline Phosphatase (38-126) U/L Troponin I <0.012 (0.000-0.034) ng/mL Total Protein (6.3-8.2) g/dL Albumin (3.5-5.0) g/dL Urine HCG, Qual Not Detected (Not Detectd) Disposition Clinical Impression: Syncope, Blunt head injury, Neck pain Disposition: HOME SELF-CARE Condition: Stable Instructions (If sedation given, give patient instructions): Syncope (ED) Additional Instructions: Please follow-up with your barking machine feeder in regards to your symptoms. Consider getting an EEG. Return to the emergency department for any new or worsening symptoms Is patient prescribed a controlled substance at d/c from ED?: No Referrals: Jacob Oliveira MD [Primary Care Provider] - 1-2 days Time of Disposition: 04:14
[2023-11-18 05:40] VITALS: BP 102/66; PULSE 76; RESP 18
== END 2023-11-18 05:00 | disposition home or self-care (01) ==
LOC: EC 01:14
DX: S09.90XA Unspecified injury of head, initial encounter (principal); M54.2 Cervicalgia; X58.XXXA Exposure to other specified factors, initial encounter
CPT/HCPCS: 36415; 70450; 71046; 72125; 80053; 81025; 84484; 85025; 85610; 85730; 93005; 99285

== ENCOUNTER → 2024-06-01 | Outpatient (CLI) | payer OTHER ==
--- NOTE | 2024-06-04 20:31 | MR ---
EXAMINATION TYPE: MRI left ankle without IV contrast DATE OF EXAM: 06/01/2024 COMPARISON: Left ankle radiographs HISTORY: Left ankle pain, history of surgery. Standard multiplanar, multisequence MRI departmental protocol Multiplanar, multisequence images of the left ankle were acquired without contrast. FINDINGS: Achilles tendon is intact. Flexor tendons are intact. Extensor tendons are intact. Peroneal tendons are intact. Syndesmotic ligaments are intact. Anterior talofibular, posterior talofibular and calcaneofibular ligaments are intact. Deep and superficial deltoid ligaments are intact. Plantar fascia is intact. Sinus tarsi fat is preserved. Negative for fracture, contusion or marrow replacement. Talar dome is intact. Postsurgical change of the distal fibula. Alignment is maintained. No joint effusion. Mild medial and lateral soft tissue swelling without a drainable fluid collection. Musculature is pre served. IMPRESSION: 1. Intact tendons and ligaments. Negative for fracture. 2. Mild medial and lateral soft tissue swelling. 3. Postsurgical change of the distal fibula. [facility], Workstation: [id number], 06/04/2024 8:28 PM
== END | disposition home or self-care (01) ==
LOC: RADMRIMAIN 17:07
PROVIDERS: ATTEND Podiatrist
DX: S86.312D Strain of muscle(s) and tendon(s) of peroneal muscle group at lower leg level, left leg, subsequent encounter (principal); M66.362 Spontaneous rupture of flexor tendons, left lower leg; Z48.89 Encounter for other specified surgical aftercare; M79.89 Other specified soft tissue disorders

== ENCOUNTER 2024-07-23 20:47 | Emergency (ER) | payer OTHER ==
[2024-07-23 20:51] VITALS: RESP 18
--- NOTE | 2024-07-23 21:28 | ED ---
Lower Extremity Injury HPI - General Chief Complaint: Extremity Injury, Lower Stated Complaint: Left ankle injury Time Seen by Provider: 07/23/24 21:03 Source: patient, RN notes reviewed Mode of arrival: ambulatory Limitations: no limitations - History of Present Illness Initial Comments: This is a 19-year-old female presenting with left ankle injury/pain (03/28). Patient states she was attempting to step when she occurred which turned out to be snow, causing her foot to fall further than expected and supinate about 30 minutes ago. Patient notes significant pain with movement, palpation and weightbearing, stating she is unable to ambulate due to the pain. 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 MD Complaint: ankle injury, foot injury Onset/Timin -: minutes(s) Injury: Ankle: Left, Foot: Left Type of Injury: inversion Place: street/outdoors Improves With: immobilization Worsens With: weight bearing, movement, palpation Context: walking Associated Symptoms: swelling, numbness, unable to bear weight - Related Data Home Medications Medication Instructions Recorded Confirmed Albuterol Inhaler [Ventolin Hfa 2 puff INHALATION RT-QID PRN 06/29/20 04/21/21 Inhaler] Ibuprofen 400 mg PO DIRECTED PRN 06/29/20 04/21/21 medroxyPROGESTERone [Depo-Provera] 150 mg IM Q90D 06/29/20 04/21/21 [id number] 1 each PO DIRECTED PRN 04/10/21 04/21/21 [Excedrin] Cetirizine HCl [Zyrtec] 10 mg PO DAILY 04/10/21 04/21/21 FLUoxetine HCL [PROzac] 10 mg PO DAILY PRN 04/10/21 04/21/21 Previous Rx's Medication Instructions Recorded Ibuprofen [Motrin] 800 mg PO Q8H PRN #30 tab 07/23/24 Allergies Allergy/AdvReac Type Severity Reaction Status Date / Time No Known Allergies Allergy Verified 07/23/24 20:51 Review of Systems ROS Statement: Those systems with pertinent positive or pertinent negative responses have been documented in the HPI. ROS Other: All systems not noted in ROS Statement are negative. Past Medical History Past Medical History: Asthma, Seizure Disorder Additional Past Medical History / Comment(s): hypoglycemia, exercise induced asthma., stress headaches, occ. heart flutter., hx of fx nose, left ankle, elbow, right wrist & left fibula., Slipped and injured left ankle November 2020. POTS History of Any Multi-Drug Resistant Organisms: None Reported Past Surgical History: No Surgical Hx Reported Additional Past Surgical History / Comment(s): ganglion cyst Past Anesthesia/Blood Transfusion Reactions: No Reported Reaction, Motion Sickness Additional Past Anesthesia/Blood Transfusion Reaction / Comment(s): . Past Psychological History: Anxiety Smoking Status: Never smoker Past Alcohol Use History: None Reported Past Drug Use History: None Reported - Past Family History Mother Additional Family Medical History / Comment(s): possible minor stroke General Exam Limitations: no limitations General appearance: alert, in no apparent distress Head exam: Present: atraumatic, normocephalic, normal inspection Eye exam: Present: normal appearance, PERRL, EOMI. Absent: scleral icterus, conjunctival injection, periorbital swelling ENT exam: Present: normal exam, mucous membranes moist Neck exam: Present: normal inspection. Absent: tenderness, meningismus, lymphadenopathy Respiratory exam: Present: normal lung sounds bilaterally. Absent: respiratory distress, wheezes, rales, rhonchi, stridor Cardiovascular Exam: Present: regular rate, normal rhythm, normal heart sounds. Absent: systolic murmur, diastolic murmur, rubs, gallop, clicks GI/Abdominal exam: Present: soft, normal bowel sounds. Absent: distended, tenderness, guarding, rebound, rigid Extremities exam: Present: tenderness (Positive exquisite, diffuse left foot/ankle edema/tenderness, including bilateral malleolus, navicular and fifth metatarsal. Negative erythema, ecchymosis, crepitus, deformity. Patient notes minor lateral foot paresthesia dorsalis pedis pulse +2, capillary refill less than 2 seconds), normal capillary refill, pedal edema, joint swelling. Absent: calf tenderness Back exam: Present: normal inspection Neurological exam: Present: alert, oriented X3, CN II-XII intact Psychiatric exam: Present: normal affect, normal mood Skin exam: Present: warm, dry, intact, normal color. Absent: rash Course Vital Signs 07/23/24 20:49 Temperature 97.8 F Pulse Rate 85 Respiratory 18 Rate Blood Pressure 120/74 O2 Sat by Pulse 97 Oximetry Medical Decision Making - Medical Decision Making Was pt. sent in by a medical professional or institution ([facility], [employer], urgent care, hospital, or jail...) When possible be specific @ -[No] Did you speak to anyone other than the patient for history (EMS, parent, family, police, friend...)? What history was obtained from this source @ -[No] Did you review nursing and triage notes (agree or disagree)? Why? @ -[I reviewed and agree with nursing and triage notes] Were old charts reviewed (outside hosp., previous admission, EMS record, old EKG, old radiological studies, urgent care reports/EKG's, jail records)? Report findings @ -[No old charts were reviewed] Differential Diagnosis (chest pain, altered mental status, abdominal pain women, abdominal pain men, vaginal bleeding, weakness, fever, dyspnea, syncope, headache, dizziness, GI bleed, back pain, seizure, CVA, palpatations, mental health, musculoskeletal)? @ -Ankle fracture, foot fracture, ankle sprain, foot sprain EKG interpreted by me (3pts min.). @ -Not done X-rays interpreted by me (1pt min.). @ -[None done] CT interpreted by me (1pt min.). @ -[None done] U/S interpreted by me (1pt. min.). @ -[None done] What testing was considered but not performed or refused? (CT, X-rays, U/S, labs)? Why? @ -[None] What meds were considered but not given or refused? Why? @ -[None] Did you discuss the management of the patient with other professionals (professionals i.e. [facility], [employer], lab, RT, psych nurse, social sciences research scientist, narrow fabrics weaver, teacher, housing officer, case picker)? Give summary @ -[No] Was smoking cessation discussed for >3mins.? @ -[No] Was critical care preformed (if so, how long)? @ -[No] Were there social determinants of health that impacted care today? How? (Homelessness, low income, unemployed, alcoholism, drug addiction, transportation, low edu. Level, literacy, decrease access to med. care, long-term, rehab)? @ -[No] Was there de-escalation of care discussed even if they declined (Discuss DNR or withdrawal of care, Hospice)? DNR status @ -[No] What co-morbidities impacted this encounter? (DM, HTN, Smoking, COPD, CAD, Cancer, CVA, ARF, Chemo, Hep., AIDS, mental health diagnosis, sleep apnea, morbid obesity)? @ -[None] Was patient admitted / discharged? Hospital course, mention meds given and route, prescriptions, significant lab abnormalities, going to OR and other pertinent info. @ -[hospital course] Undiagnosed new problem with uncertain prognosis? @ -[No] Drug Therapy requiring intensive monitoring for toxicity (Heparin, Nitro, Insulin, Cardizem)? @ -[No] Were any procedures done? @ -[No] Diagnosis/symptom? @ -[default] Acute, or Chronic, or Acute on Chronic? @ -Acute Uncomplicated (without systemic symptoms) or Complicated (systemic symptoms)? @ -Uncomplicated Side effects of treatment? @ -[No] Exacerbation, Progression, or Severe Exacerbation? @ -[No] Poses a threat to life or bodily function? How? (Chest pain, USA, [place], pneumonia, PE, COPD, DKA, ARF, appy, cholecystitis, CVA, Diverticulitis, Homicidal, Suicidal, threat to staff... and all critical care pts) @ -[No] Disposition Clinical Impression: Left ankle sprain Disposition: HOME SELF-CARE Condition: Good Instructions (If sedation given, give patient instructions): Ankle Sprain (ED) Prescriptions: Ibuprofen [Motrin] 800 mg PO Q8H PRN #30 tab PRN Reason: Pain Is patient prescribed a controlled substance at d/c from ED?: No Referrals: None,Stated [REFERRING] - 1-2 days Time of Disposition: 22:45
[2024-07-23] MEDS: KETOROLAC 15 MG/ML 1 ML VIAL IM STA ×2 (21:32→22:58)
--- NOTE | 2024-07-23 22:33 | XR ---
EXAMINATION TYPE: XR ankle complete LT, XR foot complete LT DATE OF EXAM: 07/23/2024 9:19 PM CLINICAL INDICATION:Female, 19 years old with history of Supination, diffuse TTP; [facility] COMPARISON: None TECHNIQUE: XR ankle complete LT ankle and XR foot complete LT is imaged in frontal, lateral and obli que projections. FINDINGS: There is no evidence of acute osseous pathology. No evidence of subluxation or dislocation. Kager's fat pad is intact. No radiopaque foreign bodies are identified. Mild soft tissue swelling of the ankl e is appreciated. Joint spaces are unremarkable. IMPRESSION: 1. No evidence of acute fracture. 2. Mild soft tissue swelling around the ankle likely secondary to underlying soft tissue injury. [facility], , 07/23/2024 10:31 PM
[2024-07-23 23:58] VITALS: BP 124/75; PULSE 78; TEMP 97.9
== END 2024-07-23 23:50 | disposition home or self-care (01) ==
LOC: EC 20:47
DX: S93.402A Sprain of unspecified ligament of left ankle, initial encounter (principal); W19.XXXA Unspecified fall, initial encounter
CPT/HCPCS: 73610; 73630; 99283; 96372 ×2; J1885

== ENCOUNTER 2024-11-04 22:44 | Emergency (ER) | payer OTHER ==
[2024-11-05] MEDS: ACETAMINOPHEN TAB 325 MG TAB PO STA (00:11)
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
[2024-11-05 01:26] VITALS: BP 102/70; PULSE 92; RESP 18; TEMP 98.5
== END 2024-11-05 01:53 | disposition home or self-care (01) ==
LOC: EC 22:44
DX: M79.601 Pain in right arm (principal); V49.40XA Driver injured in collision with unspecified motor vehicles in traffic accident, initial encounter
CPT/HCPCS: 99284